=== PATIENT | female | born 1950 | race Caucasian/White ===

== ENCOUNTER → 2023-11-24 13:28 | Outpatient (REF) | payer MEDICARE, OTHER, SELFPAY | LOC: WDC 13:28 | PROVIDERS: ATTENDING PHYSICIAN Obstetrics & Gynecology; FAMILY PHYSICIAN Internal Medicine Geriatric Medicine | DX: R42 Dizziness and giddiness (principal); Z12.31 Encounter for screening mammogram for malignant neoplasm of breast; Z78.0 Asymptomatic menopausal state; E04.1 Nontoxic single thyroid nodule | CPT/HCPCS: 76536; 77063; 77067 ==

== ENCOUNTER → 2024-05-22 10:53 | Outpatient (REF) | payer MEDICARE, OTHER, SELFPAY | LOC: DHSLP 10:53 | PROVIDERS: ATTENDING PHYSICIAN Internal Medicine Geriatric Medicine | DX: G47.33 Obstructive sleep apnea (adult) (pediatric) (principal) | CPT/HCPCS: 95800 ==

== ENCOUNTER → 2024-06-29 12:37 | Outpatient (REF) | payer MEDICARE, OTHER, SELFPAY | LOC: RAD 12:37 | PROVIDERS: ATTENDING PHYSICIAN Nurse Practitioner Family | DX: R22.9 Localized swelling, mass and lump, unspecified (principal) | CPT/HCPCS: 76604 ==

== ENCOUNTER → 2024-07-24 13:01 | Outpatient (REF) | payer MEDICARE, OTHER, SELFPAY ==
[2024-07-24 13:20] VITALS: BP 126/72; BP_SYST 71
[2024-07-24 14:37] VITALS: BP 137/72; BP_SYST 69
[2024-07-24 14:49] VITALS: BP 137/72
== END ==
LOC: RADI 13:01
PROVIDERS: ATTENDING PHYSICIAN Internal Medicine Geriatric Medicine
DX: D21.6 Benign neoplasm of connective and other soft tissue of trunk, unspecified (principal)
CPT/HCPCS: 88305; 20206; 76942; 88333

== ENCOUNTER → 2024-12-03 13:29 | Outpatient (REF) | payer MEDICARE, OTHER, SELFPAY | LOC: WDC 13:29 | PROVIDERS: ATTENDING PHYSICIAN Obstetrics & Gynecology; FAMILY PHYSICIAN Internal Medicine Geriatric Medicine | DX: Z12.31 Encounter for screening mammogram for malignant neoplasm of breast (principal) | CPT/HCPCS: 77063; 77067 ==

== ENCOUNTER → 2024-12-27 13:34 | Outpatient (REF) | payer MEDICARE, OTHER, SELFPAY | LOC: RAD 13:34 | PROVIDERS: ATTENDING PHYSICIAN Internal Medicine Geriatric Medicine | DX: F33.0 Major depressive disorder, recurrent, mild (principal); R42 Dizziness and giddiness; E78.2 Mixed hyperlipidemia; R53.83 Other fatigue; R00.2 Palpitations; F41.1 Generalized anxiety disorder; D64.9 Anemia, unspecified; R26.89 Other abnormalities of gait and mobility; I65.22 Occlusion and stenosis of left carotid artery; Z23 Encounter for immunization; I95.1 Orthostatic hypotension; E55.9 Vitamin D deficiency, unspecified | CPT/HCPCS: 75571; 93880 ==

== ENCOUNTER → 2025-03-02 10:41 | Outpatient (REF) | payer MEDICARE, OTHER, SELFPAY | LOC: RAD 10:41 | PROVIDERS: ATTENDING PHYSICIAN Physician Assistant Surgical; FAMILY PHYSICIAN Internal Medicine Geriatric Medicine | DX: M54.16 Radiculopathy, lumbar region (principal) | CPT/HCPCS: 72131 ==